=== PATIENT | female | born 1950 | race Caucasian/White ===

== ENCOUNTER → 2018-01-29 | Outpatient (CLI) | payer BC ==
[2018-01-29 13:35] LABS: Appearance,Urine Clear (Clear); Bilirubin,Urine Negative (Negative); Blood,Urine Negative (Negative); Color,Urine Light Yellow; Glucose,Urine (UA) Negative (Negative); HCT 31.8 % (34.0-46.0); HGB 10.3 gm/dL (11.4-16.0); Ketones,Urine Negative (Negative); Leukocyte Esterase,Urine Negative (Negative); MCH 27.6 pg (25.0-35.0); MCHC 32.3 g/dL (31.0-37.0); MCV 85.4 fL (80.0-100.0); Mean Platelet Volume 6.7; Nitrite,Urine Negative (Negative); Platelet Count 199 k/uL (150-450); Protein,Urine Negative (Negative); RBC 3.72 m/uL (3.80-5.40); RDW 15.3 % (11.5-15.5); Specific Gravity,Urine 1.009 (1.001-1.035); Urobilinogen,Urine <2.0 mg/dL (<2.0); WBC 6.1 k/uL (3.8-10.6)
[2018-01-29 13:48] LABS: Partial Thromboplastin Time 22.1 sec (22.0-30.0); Prothrombin Time 9.7 sec (9.0-12.0)
[2018-01-29 13:59] LABS: Calcium 9.5 mg/dL (8.4-10.2); Potassium 5.3 mmol/L (3.5-5.1); Total Bilirubin 0.3 mg/dL (0.2-1.3); Total Protein 6.8 g/dL (6.3-8.2)
== END ==
LOC: LABPAT 12:34
PROVIDERS: ATTEND Orthopaedic Surgery
DX: Z01.812 Encounter for preprocedural laboratory examination (principal); Z79.01 Long term (current) use of anticoagulants
CPT/HCPCS: 80053; 81003; 85027; 85610; 85730; 87070

== ENCOUNTER 2018-02-15 10:33 | Inpatient (IN) | payer BC, MEDICARE ==
[2018-02-03 16:09] VITALS: BMI 29.7
[~2018-02-15 10:33] MED LIST: ACETAMINOPHEN TAB 500 MG TAB PO ONE; DEXAMETHASONE SOD PHOSPHATE 10 MG/ML 1 ML VIAL IV ONE; MIDAZOLAM 2 MG/2 ML VIAL IV PRN; ONDANSETRON 4 MG/2 ML VIAL IVP ONE; TRANEXAMIC ACID 1,000 MG in SODIUM CHLORIDE 0.9% 50 ML IVPB ONE; ceFAZolin IN SWFI 2 GM/20 ML SYRINGE IVP ONE; fentaNYL (PF) 50 MCG/ML 2 ML AMP IV PRN
[2018-02-15] MEDS: LACTATED RINGERS 1,000 ML IV SCH ×4 (11:14→16:30)
[2018-02-15] MEDS ORDERED: LIDOCAINE 1% 20 ML VIAL (10MG/ML) FOR IV START INTRADERMA ONE (11:24)
[2018-02-15] MEDS ORDERED: DEXAMETHASONE SOD PHOSPHATE 10 MG/ML 1 ML VIAL IV ONE (11:25)
[2018-02-15] MEDS ORDERED: MIDAZOLAM 2 MG/2 ML VIAL ONE ×2 (11:31→12:38)
[2018-02-15] MEDS ORDERED: diphenhydrAMINE 50 MG/ML 1 ML VIAL ONE (12:38)
[2018-02-15] MEDS ORDERED: TRANEXAMIC ACID 1,000 MG/10 ML VIAL ONE (12:38)
[2018-02-15] MEDS ORDERED: PROPOFOL 10 MG/ML 20 ML VIAL IV ONE (12:38)
[2018-02-15] MEDS ORDERED: SODIUM CHLORIDE 0.9% 100 ML BAG ONE (12:38)
[2018-02-15] MEDS ORDERED: ROPIVACAINE 246.25 MG, EPINEPHrine 0.5 MG, KETOROLAC 30 MG, cloNIDine HCL/PF 80 MCG, WA... MISCELLANE STA ×5 (13:02)
[2018-02-15] MEDS ORDERED: ceFAZolin 3,000 MG in SODIUM CHLORIDE 0.9% IRRIGATIO 3,000 ML IRRIGATION ONE (13:26)
[2018-02-15] MEDS ORDERED: LACTATED RINGERS 1,000 ML IV ONE (14:35)
[2018-02-15] MEDS ORDERED: HYDROmorphone 1 MG/ML 1 ML SYRINGE IVP PRN ×2 (15:09)
[2018-02-15] MEDS ORDERED: HYDROcodone/APAP 5-325MG 1 EACH TAB PO PRN (15:09)
[2018-02-15] MEDS ORDERED: ONDANSETRON 4 MG/2 ML VIAL IVP PRN (15:09)
[2018-02-15] MEDS ORDERED: NA PHOS,M-B/NA PHOS,DI-BA 133 ML ENEMA RECTAL PRN (15:09)
[2018-02-15] MEDS ORDERED: NALOXONE 0.4 MG/ML 1 ML VIAL IV PRN (15:09)
[2018-02-15] MEDS ORDERED: BISACODYL 10 MG SUPP RECTAL PRN (15:09)
[2018-02-15] MEDS ORDERED: TEMAZEPAM 15 MG CAP PO PRN (15:09)
[2018-02-15] MEDS ORDERED: MAGNESIUM HYDROXIDE 2,400 MG/10 ML CUP PO PRN (15:09)
--- NOTE | 2018-02-15 15:54 | XR ---
EXAMINATION TYPE: XR knee limited LT DATE OF EXAM: 02/15/2018 CLINICAL HISTORY: Left knee pain and arthritis status post total knee replacement. TECHNIQUE: Portable AP and crosstable lateral views of the left knee are obtained immediately postop eratively. COMPARISON: None FINDINGS: Metallic hardware from total left knee arthroplasty is seen and appears satisfactory in al ignment and position. There is evidence of recent surgery with diffuse subcutaneous gas and soft tis taylor swelling noted. IMPRESSION: METALLIC HARDWARE FROM TOTAL LEFT KNEE ARTHROPLASTY IS SATISFACTORY IN ALIGNMENT.
--- NOTE | 2018-02-15 16:47 | P.OP ---
Date of Procedure: 02/15/18 Procedure(s) Performed: PREOPERATIVE DIAGNOSIS: Left knee severe osteoarthritis with genu varum POSTOPERATIVE DIAGNOSIS: Left knee severe osteoarthritis with genu varum OPERATION: Left knee cemented total replacement arthroplasty. ANESTHESIA: Spinal ESTIMATED BLOOD LOSS: 100 ml. MACHINE SET UP: Marium Junior PA-C (assistance with: patient positioning, retraction, exposure, hemostasis, leg positioning, implantation, irrigation, closure, dressing) COMPLICATIONS: None apparent. COMPONENTS IMPLANTED: Persona system from [employer] INDICATIONS:Mrs. Rojas is a 67-year-old female with a history of left knee osteoarthritis. She has very successfully undergone right knee replacement several years ago. The operation of knee replacement has been discussed at length in the office, as well as potential risks and complications. These are inclusive of, but not limited to: bleeding, infection, scarring, discomfort, blood vessel and nerve damage, need for further surgery, failure to relieve symptoms, persistence, recurrence, or worsening of problems, loosening, dislocation, wear, blood clot, pulmonary embolism, , gait dysfunction, stiffness, and other risks as discussed in the office. The patient elects to proceed and the consent form has been signed. PROCEDURE: The patient was taken to the operating room and positioned on the operating room table in the supine position. Anesthesia was initiated. Care was taken to make sure that all pressure points were adequately padded. The operative lower extremity was prepped and draped in the usual aseptic fashion using ChloraPrep. Ioban drape was used for the case and the patient received intravenous antibiotics within one hour of the incision. A pneumotourniquet and leg frederick were used for the case. The limb was exsanguinated with an Esmarch bandage and the tourniquet was inflated to 350 mmHg. Time-out was called confirming the patient's identity, side, procedure and administration of antibiotics. The incision was then created midline directly over the knee, carried down through skin and into the subcutaneous tissues and down to fascia. Full thickness subcutaneous medial flap was developed. Medial parapatellar arthrotomy was performed and the interior of the knee was inspected. There was end-stage osteoarthritis of the knee with a mild to moderate genu varum type deformity. The fat pad was excised and proximal medial release on the tibia was completed using meticulous dissection and a curved osteotome. The anterior cruciate ligament was taken down. Note was made of significant attrition of the anterior and significant degenerative appearance of the posterior cruciate ligaments. The exposure was excellent. The knee was flexed 90 degrees and the patella was everted. A spot was chosen on the femur approximately 1 cm anterior to the posterior cruciate ligament insertion and an intramedullary hole was created within the femur. The intramedullary guide was then set to 5 degrees of valgus. The distal cutting block was attached and pinned into position. An appropriate amount of distal femoral resection was set. The oscillating saw was then used to make the distal femoral cut. This cut was confirmed to be flat with the flat end of an osteotome. The retractors were placed around the tibia and the tibial surface was addressed. The angle and depth of resection was adjusted using an extramedullary cutting guide. The guide had a built-in 3 degree posterior slope cut. Once the cutting guide was adjusted appropriately and in line with the axis of the tibia and confirmed to be in good position in relation to the second metatarsal and transmalleolar axis, the tibial cut was then created with protection of the posterior neurovascular structures and the collateral ligaments. The tibial cut surface was removed and sized. Note was made of fairly significant tibial osteopenia, and therefore preparation was made for a stem extension for the tibial component. Femoral sizing was then accomplished using anterior referencing. Care was taken to analyze the posterior condyles for signs of deficiency or severe wear, and adjustments to the guide were made, as appropriate. 3 degree external rotation pins were placed. The cutting jig for the femur was applied to these pins. The planned cuts were further analyzed prior to performing them with the oscillating saw. No femoral notching was produced. Bone fragments were removed and the cut surfaces were finished, as necessary, with a reciprocating saw. Spacer block technique was then used to confirm that the flexion and extension gaps were equal. Soft tissue releases and adjustment of the tibial and/or femoral cuts were made, as necessary, until the gaps were equal. This included release of the posterior cruciate ligament, which was tight in this patient and , if left unreleased, would have resulted in poor kinematics and possibly early loosening. The femur was then further finished for a posterior cruciate ligament substituting component. Patellar resurfacing was performed using a reamer. The size of the required patellar component was estimated and the patellar surface was then reamed down to a residual thickness which would recreate the [place] thickness with the component. The placement of the patellar component was influenced by the degree of patellar subluxation, if any, noted on the preoperative x-rays. Prior to placing trial components, anesthetic solution consisting of ropivicaine with epinephrine, ketorolac, and clonidine was injected carefully and methodically in a grid pattern using aspiration technique into the soft tissue around the knee circumferentially, starting with the deeper tissues first and progressing to fascia, and then finally the skin/subcutaneous tissue. Particular care was taken when injecting the posterior capsule. The trial components were inserted. The tibial tray was allowed to self center and the patella was noted to track very well. The position of the tibial component was marked and the tibia was then finished for a longer stemmed tibial component. Cement was mixed on the back table and applied to the final components. Trial components were removed and the cut surfaces of the bone were pulse lavaged thoroughly and dried. Cement was then applied to the tibial surface and pressurized into the surface using finger pressurization technique. The tibial component was then applied and excess cement was removed after it was impacted securely and noted to be flush with the cut surface. In similar fashion, the cement was applied to the cut femoral surface, pressurized in using finger pressurization and the component was impacted into place. Excess cement was removed. The polyethylene spacer was then implanted and locked into position. The patellar component was then applied in similar technique and a patellar clamp was used to hold the patella in place as the cement hardened. Once the cement had fully hardened, the knee was reinspected. Any other cement extrusion was removed and final kinematic testing showed range of motion from 0 to 130 degrees with excellent stability, both medially and laterally and appropriate alignment of the leg. Patellar tracking was excellent. The knee was then thoroughly pulse lavaged with normal saline. The tourniquet was deflated and hemostasis was obtained with electrocautery and IV tranexamic acid, 1 g given prior to inflation of the tourniquet and another gram given at the time of closure. Closure was with #2 Ethibond in the fascia and supplemented with #2 Quill, 2-0 Vicryl suture was used for the subcutaneous tissues and 3-0 Quill for the skin. Dermabond/Steri-Strips were then applied. A lightly compressive dressing was applied using Webril and an Abran wrap. The patient was then transferred to stretcher and taken to the recovery room in stable condition. Sponge and needle counts were correct.
[2018-02-15] MEDS: HYDROcodone/APAP 5-325MG 1 EACH TAB PO PRN (17:45)
[2018-02-15] MEDS ORDERED: WARFARIN 5 MG TAB PO ONE (18:00)
--- NOTE | 2018-02-15 18:56 | CONS ---
CONSULTATION REASON FOR CONSULTATION: Advice regarding diabetes mellitus, GERD, and multiple medical issues, requested by Dr. Hoover. HISTORY OF PRESENT ILLNESS: This 67-year-old woman with a past medical history of COPD, diabetes mellitus, GERD, hypertension, hyperlipidemia, DJD, sleep apnea, being followed by a primary physician in the [place] area, underwent left knee joint arthroplasty by Dr. Hoover. The patient tolerated the procedure well. There is no history of any fever, rigor or chills. No history of headache, loss of consciousness, seizures at this time. Potassium is 4.5. PAST MEDICAL HISTORY: 1. COPD. 2. Diabetes mellitus. 3. GERD. 4. Hypertension. 5. Hyperlipidemia. 6. History of sleep apnea, CPAP. 7. History of bariatric surgery. 8. Joint replacements. HOME MEDICATIONS: 1. Ultram 50 mg b.i.d. p.r.n. 2. Benadryl 25 mg p.o. daily. 3. Vegetable laxative 3 capsules at bedtime. 4. Spiriva 1 puff daily. 5. Zocor 20 mg at bedtime. 6. Zoloft 100 mg each morning. 7. Omeprazole 40 mg each morning. 8. Zestoretic 1 tablet p.o. each morning. 9. Synthroid 75 mcg p.o. each morning. 10.Advair 100/50 two puffs b.i.d. 11.Flonase 2 sprays daily. 12.Lodine 400 mg p.o. b.i.d. 13.Vitamin D3 5000 daily. 14.Coumadin 2.5 mg daily. 15.Senokot-S 1 tablet p.o. b.i.d. 16.Trimont 5 mg 4-6 p.r.n. ALLERGIES: NONE. FAMILY HISTORY: No history of heart disease or strokes in the family. SOCIAL HISTORY: Previous history of smoking. No current smoking or alcohol intake. REVIEW OF SYSTEMS: ENT: No diminished hearing. No diminished vision. CARDIOVASCULAR SYSTEM: No angina, palpitations. RESPIRATORY SYSTEM: No cough, hemoptysis. GI: No nausea, vomiting. : No dysuria or retention. NERVOUS SYSTEM: No numbness, weakness. ALLERGY/IMMUNOLOGY: No asthma, hayfever. MUSCULOSKELETAL: As mentioned earlier. HEMATOLOGY/ONCOLOGY: No history of anemia. ENDOCRINE: Diabetes and hypothyroidism present. CONSTITUTIONAL: As mentioned earlier. DERMATOLOGY: Negative. RHEUMATOLOGY: Negative. PSYCHIATRY: As mentioned earlier. PHYSICAL EXAMINATION: Patient is alert and oriented x3. Pulse 58, blood pressure 126/60, respirations 16, temperature 97.4, pulse ox 98% on 3 L. HEENT: Conjunctivae normal. Oral mucosa moist. NECK: No jugular venous distention. No carotid bruit. No lymph node enlargement. CARDIOVASCULAR SYSTEM: S1, S2 muffled. No S3. No S4. RESPIRATORY SYSTEM: Breath sounds diminished at the bases. No rhonchi. No crackles. ABDOMEN: Soft, non-tender. No mass palpable. LEGS: Status post knee arthroplasty. NERVOUS SYSTEM: Higher functions as mentioned earlier. Moves all 4 limbs. No focal motor or sensory deficit. LYMPHATICS: No lymph node palpable in neck, axillae or groin. SKIN: No ulcer, rash, bleeding. JOINTS: As mentioned earlier. LAB INVESTIGATIONS: Potassium is 4.5; otherwise, preoperative hemoglobin 10.3. Coags are normal. Sodium is 136. ASSESSMENT: 1. Status post left total knee joint arthroplasty. 2. Diabetes mellitus, type 2. 3. Chronic obstructive pulmonary disease. 4. Gastroesophageal reflux disease. 5. Hypertension. 6. Hyperlipidemia. 7. History of degenerative joint disease. 8. History of sleep apnea, on CPAP. 9. Hypothyroidism. 10.History of bariatric surgery. 11.Remote history of nicotine dependence. RECOMMENDATIONS AND DISCUSSION: In this 67-year-old woman who presented with multiple medical issues, we will monitor the patient closely, continue the current medications, continue symptomatic treatment. Otherwise at this time we will resume the home medications. Bronchodilators. Ensure oxygenation. CPAP. DVT prophylaxis. Incentive spirometer. I also recommend monitoring the blood sugars to ensure normalcy. Otherwise we will continue to monitor. Further recommendations to follow. Thank you, Dr. Hoover, for letting us participate in the care of this patient. MMODL / IJN: [id number] /
[2018-02-15] MEDS: SYMBICORT 80-4.5 MCG INHALER INHALATION SCH (20:26)
[2018-02-15] MEDS: ATORVASTATIN 10 MG TAB PO SCH (21:48)
[2018-02-15] MEDS: SENNOSIDES-DOCUSATE SODIUM 1 EACH TAB PO SCH (21:48)
[2018-02-15] MEDS: ceFAZolin IN SWFI 2 GM/20 ML SYRINGE IVP SCH (21:49)
[2018-02-16] MEDS: HYDROcodone/APAP 5-325MG 1 EACH TAB PO PRN ×2 (02:06→08:42)
[2018-02-16] MEDS: HYDROmorphone 1 MG/ML 1 ML SYRINGE IVP PRN ×4 (03:55→20:25)
[2018-02-16] MEDS: LEVOTHYROXINE 75 MCG TAB PO SCH (05:49)
[2018-02-16] MEDS: ceFAZolin IN SWFI 2 GM/20 ML SYRINGE IVP SCH (05:49)
[2018-02-16] MEDS: PANTOPRAZOLE 40 MG TABLET PO SCH (07:30)
[2018-02-16 07:48] LABS: Basophils % (A) 0 %; Eosinophils # (A) 0.2 k/uL (0-0.7); Eosinophils % (A) 3 %; HCT 28.6 % (34.0-46.0); HGB 9.2 gm/dL (11.4-16.0); Lymphocytes # (A) 1.4 k/uL (1.0-4.8); Lymphocytes % (A) 21 %; MCH 26.9 pg (25.0-35.0); MCHC 32.3 g/dL (31.0-37.0); MCV 83.2 fL (80.0-100.0); Mean Platelet Volume 8.1; Monocytes # (A) 0.4 k/uL (0-1.0); Monocytes % (A) 6 %; Neutrophils # (A) 4.6 k/uL (1.3-7.7); Neutrophils % (A) 69 %; Platelet Count 183 k/uL (150-450); RBC 3.43 m/uL (3.80-5.40); RDW 14.8 % (11.5-15.5); WBC 6.7 k/uL (3.8-10.6)
[2018-02-16 07:57] LABS: INR 1.1 (<1.2); Prothrombin Time 10.6 sec (9.0-12.0)
[2018-02-16] MEDS: LACTATED RINGERS 1,000 ML IV SCH ×3 (08:39→11:15)
[2018-02-16] MEDS: FLUTICASONE 50MCG/SPRAY NASAL 16GM EA NOSTRIL SCH (08:40)
[2018-02-16] MEDS: diphenhydrAMINE 25 MG CAP PO SCH (08:40)
[2018-02-16] MEDS: SERTRALINE 100 MG TAB PO SCH (08:40)
[2018-02-16] MEDS: LISINOPRIL-HCTZ 20-12.5 MG 1 EACH TAB PO SCH (08:41)
[2018-02-16] MEDS: MELOXICAM 7.5 MG TAB PO SCH (08:41)
[2018-02-16] MEDS: IPRATROPIUM 0.5 MG/2.5 ML NEBU INHALATION SCH ×4 (08:42→19:05)
[2018-02-16] MEDS: SYMBICORT 80-4.5 MCG INHALER INHALATION SCH ×2 (08:42→19:05)
[2018-02-16] MEDS ORDERED: HYDROcodone/APAP 7.5-325MG 1 EACH TAB PO PRN (09:37)
--- NOTE | 2018-02-16 09:42 | P.DS ---
Providers Date of admission: 02/15/18 10:33 Expected date of discharge: 02/16/18 Attending physician: Enzo Hoover Consults: 02/15/18 15:09 Consult Physician Routine Consulting Provider: Destiny Kirby Consult Reason/Comments: medical management Do you want consulting provider notified?: Yes Primary care physician: Neri Rome - Discharge Diagnosis(es) (1) S/P total knee arthroplasty Current Visit: Yes Status: Acute Hospital Course: This is a 67-year-old female with known history of degenerative arthritis of the left knee. The patient presents for evaluation. After discussion and consideration patient elects to proceed with total knee arthroplasty. The patient is seen preoperatively by Dr. Hoover and medically cleared for surgery by their primary care physician. Patient is admitted to [facility] on 02/15/2018 for total knee arthroplasty. The procedures performed without complication or sequelae. The patient is doing well postoperatively. Labs and vital signs are stable on day of discharge. On day of discharge patient's knee incision is healing well. There is minimal erythema. There is no drainage noted at this time. There is minimal soft tissue swelling to the knee. Patient has full foot and ankle motion without difficulty or pain. Neurovascular status to the left lower extremity is intact. Patient is discharged home in good condition. Please see med rec for accurate list of home medications. Plan - Discharge Summary Discharge Rx Participant: Yes New Discharge Prescriptions: New Sennosides-Docusate Sodium [Senokot-S] 1 tab PO BID #60 tablet Warfarin [Coumadin] 2.5 mg PO DAILY #1 tab HYDROcodone/APAP 7.5-325MG [[place] 7.5-325] 1 - 2 tab PO Q4-6H PRN #84 tab PRN Reason: Pain No Action Omeprazole 40 mg PO QAM Levothyroxine Sodium [Synthroid] 75 mcg PO QAM Simvastatin [Zocor] 20 mg PO HS Fluticasone/Salmeterol [Advair 100-50 Diskus] 2 puff INHALATION RT-BID diphenhydrAMINE HCL [Benadryl] 25 mg PO DAILY Tiotropium [place] [Spiriva] 1 cap INHALATION RT-DAILY Sertraline [Zoloft] 100 mg PO QAM Cholecalciferol [Vitamin D3] 5,000 unit PO DAILY traMADol HCL [Ultram] 50 mg PO BID PRN PRN Reason: Pain Etodolac [Lodine] 400 mg PO BID Lisinopril-Hctz 20-12.5 mg [Zestoretic 20-12.5] 1 tab PO QAM Fluticasone Nasal [place] [Flonase Nasal [place]] 2 spr EA NOSTRIL DAILY Vegetable Laxative 3 cap PO HS Discharge Medication List Fluticasone/Salmeterol [Advair 100-50 Diskus] 2 puff INHALATION RT-BID 12/20/13 [History] Levothyroxine Sodium [Synthroid] 75 mcg PO QAM 12/20/13 [History] Omeprazole 40 mg PO QAM 12/20/13 [History] Simvastatin [Zocor] 20 mg PO HS 12/20/13 [History] Tiotropium [place] [Spiriva] 1 cap INHALATION RT-DAILY 12/20/13 [History] diphenhydrAMINE HCL [Benadryl] 25 mg PO DAILY 12/20/13 [History] Cholecalciferol [Vitamin D3] 5,000 unit PO DAILY 02/03/18 [History] Etodolac [Lodine] 400 mg PO BID 02/03/18 [History] Fluticasone Nasal [place] [Flonase Nasal [place]] 2 spr EA NOSTRIL DAILY 02/03/18 [ History] Lisinopril-Hctz 20-12.5 mg [Zestoretic 20-12.5] 1 tab PO QAM 02/03/18 [History] Sertraline [Zoloft] 100 mg PO QAM 02/03/18 [History] Vegetable Laxative 3 cap PO HS 02/03/18 [History] traMADol HCL [Ultram] 50 mg PO BID PRN 02/03/18 [History] Sennosides-Docusate Sodium [Senokot-S] 1 tab PO BID #60 tablet 02/15/18 [Rx] Warfarin [Coumadin] 2.5 mg PO DAILY #1 tab 02/15/18 [Rx] HYDROcodone/APAP 7.5-325MG [[place] 7.5-325] 1 - 2 tab PO Q4-6H PRN #84 tab [Rx] Follow up Appointment(s)/Referral(s): Marium Junior, PAC [PHYSICIAN MANAGER STRATEGIC] - 2 Weeks Ambulatory/Diagnostic Orders: Continuous Passive Motion (CPM) Machine [DME.AMB1] Time Frame: 3 Weeks, Facility : [facility], Location: Case Management Walker [DME.AMB1] Location: None Selected Prothrombin Time INR [LAB.AMB] Location: None Selected Activity/Diet/Wound Care/Special Instructions: wbat with walker. may shower if no drainage from incision after 48 hours cpm 5-6 hours daily Discharge Disposition: HOME WITH HOME HEALTH SERVICES
[2018-02-16] MEDS: CHOLECALCIFEROL 1,000 UNIT TAB PO SCH (11:18)
--- NOTE | 2018-02-16 12:06 | PN ---
PROGRESS NOTE DATE OF SERVICE: 02/16/2018 This is a 67-year-old woman who was admitted after left total knee arthroplasty, is being closely monitored. No chest pain. No palpitations. No fever. PHYSICAL EXAM: Alert and oriented x3. The pulse 75, blood pressure 102/56, respiration 14, temperature 98 degrees, pulse ox 97% on room air. HEENT: Oral mucosa moist. Neck is no jugular venous distention. No carotid bruit. No lymph node enlargement. CARDIOVASCULAR SYSTEM: S1, S2, muffled. RESPIRATORY: Breath sounds diminished at the bases, a few rhonchi, no crackles. Abdomen is soft, nontender. No mass palpable. LEGS: Status post knee surgery on the left. NERVOUS SYSTEM: No focal deficits. LABS: WBC is 6.7, hemoglobin is 10.2. The patient is still complaining of knee pain. ASSESSMENT: 1. Status post left total knee arthroplasty with severe pain. 2. Diabetes mellitus type 2. 3. Chronic obstructive pulmonary disease. 4. Gastroesophageal reflux disease. 5. Hypertension. 6. Hyperlipidemia. 7. History of degenerative joint disease. 8. History of sleep apnea on CPAP. 9. Hypothyroidism. 10.History of bariatric surgery. 11.Remote history of nicotine dependence. RECOMMENDATION: In this 67-year-old woman who presented with multiple complex medical issues, at this time I recommend continue the current medications. Continue with the pain medications. I would add a CMP to the current regimen. Current labs, otherwise continue the current medication. Monitor blood sugars closely and continue the rest of the medications. Pain medications. Closely follow with DVT prophylaxis. Will monitor PT, INR closely. Closely monitor with Orthopedic Surgery. Further recommendations to follow. MMODL / IJN: [id number] /
[2018-02-16 12:11] LABS: Albumin 3.4 g/dL (3.5-5.0); Total Bilirubin 0.3 mg/dL (0.2-1.3)
[2018-02-16] MEDS: HYDROcodone/APAP 7.5-325MG 1 EACH TAB PO PRN (14:56)
[2018-02-16] MEDS ORDERED: WARFARIN 5 MG TAB PO ONE (18:00)
[2018-02-16] MEDS: ATORVASTATIN 10 MG TAB PO SCH (20:29)
[2018-02-16] MEDS: SENNOSIDES-DOCUSATE SODIUM 1 EACH TAB PO SCH (20:30)
[2018-02-17 01:05] VITALS: RESP 16
[2018-02-17] MEDS: HYDROmorphone 1 MG/ML 1 ML SYRINGE IVP PRN (01:45)
[2018-02-17] MEDS: HYDROcodone/APAP 7.5-325MG 1 EACH TAB PO PRN ×2 (04:44→11:30)
[2018-02-17 07:31] VITALS: BP 126/72; TEMP 97.9
[2018-02-17] MEDS: LACTATED RINGERS 1,000 ML IV SCH ×2 (07:39→10:36)
[2018-02-17] MEDS: LEVOTHYROXINE 75 MCG TAB PO SCH (07:44)
[2018-02-17] MEDS: PANTOPRAZOLE 40 MG TABLET PO SCH (07:44)
[2018-02-17] MEDS: SYMBICORT 80-4.5 MCG INHALER INHALATION SCH (08:00)
[2018-02-17] MEDS: IPRATROPIUM 0.5 MG/2.5 ML NEBU INHALATION SCH ×2 (08:00→11:20)
--- NOTE | 2018-02-17 08:00 | P.PN ---
Progress Note - Text Progress Note Date: 02/17/18 This is a 67 yo female who is S/P total left knee arthroplasty on 02/15/18. Her discharge was held yesterday due to pain. She has improved pain today and is ready for discharge home. Please see previous discharge summary.
[2018-02-17] MEDS: MELOXICAM 7.5 MG TAB PO SCH (09:26)
[2018-02-17] MEDS: diphenhydrAMINE 25 MG CAP PO SCH (09:26)
[2018-02-17] MEDS: SERTRALINE 100 MG TAB PO SCH (09:26)
[2018-02-17] MEDS: FLUTICASONE 50MCG/SPRAY NASAL 16GM EA NOSTRIL SCH (09:26)
[2018-02-17] MEDS: LISINOPRIL-HCTZ 20-12.5 MG 1 EACH TAB PO SCH (09:26)
[2018-02-17] MEDS ORDERED: HYDROmorphone 2 MG TAB PO PRN ×2 (10:41→10:42)
[2018-02-17] MEDS ORDERED: HYDROmorphone 4 MG TABLET PO PRN (10:42)
[2018-02-17 11:30] VITALS: PULSE 80
[2018-02-17] MEDS: CHOLECALCIFEROL 1,000 UNIT TAB PO SCH (11:30)
[2018-02-17 11:59] LABS: INR 1.1 (<1.2); Prothrombin Time 10.6 sec (9.0-12.0)
[2018-02-17] MEDS ORDERED: WARFARIN 10 MG TAB PO ONE (18:00)
== END 2018-02-17 12:38 | disposition home health service (06) | DRG 470 ==
LOC: 2ORMAIN 10:33 → 3SUR 15:05
PROVIDERS: ADMIT Orthopaedic Surgery; ATTEND Orthopaedic Surgery
PROC: 0SRD0J9 Replacement of Left Knee Joint with Synthetic Substitute, Cemented, Open Approach (ICD-10-PCS; principal; 2018-02-15 12:30)
DX: M17.12 Unilateral primary osteoarthritis, left knee (principal); M21.162 Varus deformity, not elsewhere classified, left knee; E03.9 Hypothyroidism, unspecified; E11.9 Type 2 diabetes mellitus without complications; G47.33 Obstructive sleep apnea (adult) (pediatric); I10 Essential (primary) hypertension; J44.9 Chronic obstructive pulmonary disease, unspecified; K21.9 Gastro-esophageal reflux disease without esophagitis; M85.862 Other specified disorders of bone density and structure, left lower leg; E78.2 Mixed hyperlipidemia; F32.9 Major depressive disorder, single episode, unspecified; K30 Functional dyspepsia; J30.2 Other seasonal allergic rhinitis; Z79.01 Long term (current) use of anticoagulants; Z79.899 Other long term (current) drug therapy; Z79.890 Hormone replacement therapy; Z87.891 Personal history of nicotine dependence; Z98.84 Bariatric surgery status; Z96.641 Presence of right artificial hip joint; Z96.651 Presence of right artificial knee joint
CPT/HCPCS: 80053; 84132; 85025; 85610; 88300; 94640